=== PATIENT | female | born 1955 ===

== ENCOUNTER 2017-02-27 08:00 | Outpatient (RCR) | payer MEDICARE, MEDICAID | END 2017-02-28 | disposition home or self-care (01) | LOC: PTY 08:00 | DX: M19.011 Primary osteoarthritis, right shoulder (principal); M75.52 Bursitis of left shoulder; M23.92 Unspecified internal derangement of left knee; I87.8 Other specified disorders of veins; I83.015 Varicose veins of right lower extremity with ulcer other part of foot; I83.025 Varicose veins of left lower extremity with ulcer other part of foot; I10 Essential (primary) hypertension | CPT/HCPCS: 97110; 97140; 97163; 97530; G0283; G8978; G8979 ==

== ENCOUNTER 2017-03-23 08:31 | Outpatient (RCR) | payer MEDICARE, MEDICAID | END 2017-03-31 | disposition home or self-care (01) | LOC: PTY 08:31 | DX: M19.011 Primary osteoarthritis, right shoulder (principal); M75.52 Bursitis of left shoulder; M24.872 Other specific joint derangements of left ankle, not elsewhere classified; M54.5 Low back pain; I10 Essential (primary) hypertension; F41.9 Anxiety disorder, unspecified; M81.0 Age-related osteoporosis without current pathological fracture | CPT/HCPCS: 97110; 97140; G0283; G8978; G8979 ==

== ENCOUNTER 2017-04-01 09:03 | Outpatient (RCR) | payer MEDICARE, OTHER | END 2017-04-30 | disposition home or self-care (01) | LOC: PTY 09:03 | DX: M75.52 Bursitis of left shoulder (principal); M19.011 Primary osteoarthritis, right shoulder; M54.5 Low back pain; I10 Essential (primary) hypertension; F41.9 Anxiety disorder, unspecified; M81.0 Age-related osteoporosis without current pathological fracture | CPT/HCPCS: 97110; 97140; G0283 ==